=== PATIENT | female | born 1955 | race Caucasian/White ===

== ENCOUNTER 2019-04-22 06:23 | Inpatient (IN) ==
--- NOTE | 2019-03-31 08:52 | Anesthesiology Consultation ---
Date of Service March 31, 2019 Assessment & Plan (1) Encounter for pre-operative examination: Chart Review Chart Review: Acceptable Risk for Surgery and Patient seen in Pre Admission Testing Teaching & Discussion Instructed NPO after midnight before surgery, except medications with 15 cc of water. Medication instructions provided according to the PAT guidelines. History Surgery Operation Date: 04/22/19 07:15 Proposed Procedures p Left Total Knee Arthroplasty - Russ Jimenes DO Height/Weight Height: 5 ft 2.5 in Weight: 77.1 kg Allergies Allergy/AdvReac Type Severity Reaction Status Date / Time No Known Allergies Allergy Unverified 03/31/19 08:49 Medications Home Medications Medication Instructions Recorded Confirmed Last Taken Anamu 400 mg PO QAM 09/18/18 03/28/19 09/29/18 aspirin [Aspirin Low Dose] 81 mg PO QAM 09/18/18 03/28/19 09/29/18 atorvastatin 20 mg PO QAM 09/18/18 03/28/19 10/08/18 08:00 desvenlafaxine 50 mg PO QAM 09/18/18 03/28/19 10/08/18 08:00 Past Medical History Medical History (Updated 03/31/19 @ 16:11 by Raul Wong) Anxiety Depression GERD (gastroesophageal reflux disease) History of blood transfusion possible; post-op HX: breast cancer left mastectomy/XRT; LUE limb restriction -2002 Hyperlipidemia Kidney stone on left side and right side Osteoarthritis Exercise / Class Metabolic Activity II 4-5 Yardwork/Stairs/Walk up hill Past Family History Family History Other FHx: breast cancer Past Surgical History Surgical History History of cholecystectomy History of colonoscopy History of cystoscopy WITH STENT X 4-5 History of meniscectomy of left knee History of partial hysterectomy History of rotator cuff surgery RIGHT History of tonsillectomy Hx of left mastectomy Past Anesthesia History No Hx of Anesthesia Complications and No Family Hx of Anesthesia Complications History of PONV No Hx of PONV and Hx of Motion Sickness Social History Smoking Status: Never smoker Do You Dip or Chew Tobacco: No Hx Alcohol Use: Yes Alcohol type: wine alcohol intake frequency: holidays/special occasions only Hx Substance Use: No Review of Systems Pt denies any recent chest pain, shortness of breath, cough, fever or URI. +Rare palpitations Physical Exam Vital Signs BP: 122/76 P: 73bpm SPO2: 97% RA T: 98.0 F R: 16 ENMT Mouth: + dentures (upper partial) and + chipped teeth (to be pulled prior to surgery, advised to maker surgeon aware); no loose teeth Thyromental Distance: > or= 3.5 Finger Breadths (3.5) Mallampati Class: I Neck normal visual inspection; neck extension not limited Respiratory normal respiratory effort Auscultation: lungs clear to auscultation bilaterally Cardiovascular Rate/Rhythm: regular rate and regular rhythm Heart Sounds: no murmur Extremities: no edema Testing Laboratory Results 03/31/19 09:05 03/31/19 09:05 PT 10.0 Seconds (9.0-12.0) 03/31/19 09:05 INR 1.0 (0.9-1.1) 03/31/19 09:05 APTT 23.0 Seconds (21.0-31.0) 03/31/19 09:05 Hemoglobin A1c 5.7 % (4.5-5.6) H 03/31/19 09:05 Urine Color Yellow 03/31/19 09:05 Urine Appearance Clear (Clear) 03/31/19 09:05 Urine pH 6.5 (4.5-7.5) 03/31/19 09:05 Ur Specific [place] 1.008 (1.000-1.030) 03/31/19 09:05 Urine Protein Negative (Negative) 03/31/19 09:05 Urine Glucose (UA) Negative (Negative) 03/31/19 09:05 Urine Ketones Negative (Negative) 03/31/19 09:05 Urine Nitrite Negative (Negative) 03/31/19 09:05 Ur Leukocyte Esterase Negative (Negative) 03/31/19 09:05 Blood Type A Positive 03/31/19 09:05 Antibody Screen NEGATIVE 03/31/19 09:05 Electrocardiogram Date: 08/16/18 Findings: + NSR @ (67bpm with 1st degree AV block) Chest X-Ray Date: 08/16/18 Findings: + NAD
--- NOTE | 2019-03-31 08:58 | PAT Medication Instructions ---
Medication Instructions Date of Service March 31, 2019 Home Medications Anamu 400 mg PO QAM aspirin [Aspirin Low Dose] 81 mg PO QAM atorvastatin 20 mg PO QAM desvenlafaxine 50 mg PO QAM STOP taking 2 weeks before surgery If surgery is within 2 weeks, stop taking as soon as possible. Anamu 400 mg PO QAM Take morning of surgery With a small sip of water, OTHERWISE NOTHING TO EAT OR DRINK AFTER MIDNIGHT: aspirin [Aspirin Low Dose] 81 mg PO QAM atorvastatin 20 mg PO QAM desvenlafaxine 50 mg PO QAM Other Notes If you have any questions please call us at [phone] or [phone] or [phone] or [phone]
[2019-03-31 10:34] LABS: Basophils # (auto) 0.03 K/uL (0-0.2); Basophils % (auto) 0.5 %; Eosinophils # (auto) 0.21 K/uL (0-0.5); Eosinophils % (auto) 3.7 %; Hematocrit (blood only) 42.6 % (37-47); Hemoglobin 14.9 g/dL (12.0-16.0); Immature Granulocytes # (auto) 0.02 K/uL (0.00-0.02); Immature Granulocytes % (auto) 0.3 %; Lymphocytes % (auto) 38.4 %; Mean Corpuscular Hemoglobin 31.5 pg (25-34); Mean Corpuscular Volume 90.1 fL (80-100); Mean Platelet Volume 10.4 fL (7.4-10.4); Monocytes % (auto) 12.2 %; Neutrophils # (auto) 2.57 K/uL (1.4-6.5); Neutrophils % (auto) 44.9 %; Platelet Count 253 K/uL (130-400); RDW Coefficient of Variation 12.8 % (11.5-14.5); RDW Standard Deviation 41.8 fL (36.4-46.3); Red Blood Count 4.73 M/uL (4.2-5.4); White Blood Count 5.73 K/uL (4.8-10.8)
[2019-03-31 10:39] LABS: Appearance Urine Clear (Clear); Bilirubin Urine Negative (Negative); Blood Urine Negative (Negative); Color Urine Yellow; Glucose Urine UA Negative (Negative); Ketones Urine Negative (Negative); Leukocyte Esterase Urine Negative (Negative); Nitrite Urine Negative (Negative); Protein Urine Negative (Negative); Specific Gravity Urine 1.008 (1.000-1.030); Urobilinogen Urine Negative (Negative); pH Urine 6.5 (4.5-7.5)
[2019-03-31 10:44] LABS: Albumin Level 4.1 gm/dl (3.4-5.0); BUN Creatinine Ratio 14.9 (10-20); Calcium 9.4 mg/dl (8.5-10.1); Creatinine Clr Calc Pharmacy 74.7 ml/min; Est GFR (African American) 100.2; Est GFR (Non-African American) 86.4; Potassium 3.9 mmol/L (3.5-5.1)
[2019-03-31 10:47] LABS: Partial Thromboplastin Ratio 0.8
[2019-03-31 11:04] LABS: Estimated Average Glucose 117 mg/dl; Hemoglobin A1C 5.7 % (4.5-5.6)
--- NOTE | 2019-03-31 13:58 | History & Physical Report ---
Date of Service March 31, 2019 date of surgery: 04-22-19 Assessment & Plan (1) Arthritis of knee, left: Risks and benefits of procedure discussed in detail today, patient would like to proceed with a Left total knee replacement at [facility] as scheduled. will obtain medical clearance from Dr Smith prior to surgery as well as obtain PATs at [facility]. Will place on ASA 81mg po bid x 1 month post op, f/u 2 weeks post op for routine post-operative care and x-ray, sooner if having any problems. will make arrangements for HHPT at the time of discharge. At this point in time, has failed conservative measures and would like to proceed with surgical intervention. History of Present Illness Chief Complaint: left knee pain Primary Care Provider: NO PCP Ms Carlson is a 63 year old female who complains of left knee pain, presents for pre-op evaluation prior to a left total knee replacement at [facility]. she complains of pain and decreased ROM. She states that the symptoms have been chronic non- traumatic. The symptoms occur intermittently. Currently the patient states that the symptoms are moderate and is described as throbbing and aching. The symptoms occur with activity, walking and stairs. She rates her best pain as 2/10. She rates her worst pain as 10/10. She rates her current pain as 4/10. The symptoms are aggravated by daily activities, ascending stairs, descending stairs, kneeling and movement. she did have previous scope on 12/04/2013. she has also had previous viscosupplementation without relief. Allergies Allergy/AdvReac Type Severity Reaction Status Date / Time No Known Allergies Allergy Unverified 03/31/19 08:49 Home Medications Home Medications Medication Instructions Recorded Confirmed Type Anamu 400 mg PO QAM 09/18/18 03/28/19 History aspirin [Aspirin Low Dose] 81 mg PO QAM 09/18/18 03/28/19 History atorvastatin 20 mg PO QAM 09/18/18 03/28/19 History desvenlafaxine 50 mg PO QAM 09/18/18 03/28/19 History Past Med/Surg History Medical History Anxiety Cardiac murmur HX-WAS HEARD ONCE Depression GERD (gastroesophageal reflux disease) History of blood transfusion possible; post-op HX: breast cancer left mastectomy/XRT; LUE limb restriction -2003 Hyperlipidemia Kidney stone on left side and right side Osteoarthritis Surgical History History of cholecystectomy History of colonoscopy History of cystoscopy WITH STENT X 4-5 History of meniscectomy of left knee History of partial hysterectomy History of rotator cuff surgery RIGHT History of tonsillectomy Hx of left mastectomy Family History Other FHx: breast cancer Social History Preferred Language: Luxembourger Communication Ability: Effective Oriental Rug 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 Required: No Beliefs That Will Affect Care: None marital status: / Current Living Situation: Alone current occupational status: retired Other Information That Helps Us Care for You: No Feels Safe at Home: Yes Safety Concerns: Feels Safe At This Time Smoking Status: Never smoker Do You Dip or Chew Tobacco: No ; Second Hand Exposure: Yes (SPOUSE SMOKED-) ; Hx Alcohol Use: Yes Alcohol type: wine Hx Substance Use: No Review of Systems Review of Systems: All systems reviewed & are unremarkable except as noted in HPI & below Constitutional: no fever, no chills and no sweats Respiratory: no cough and no dyspnea Cardiovascular: no chest pain, no dyspnea and no orthopnea Gastrointestinal: no abdominal pain, no nausea and no vomiting Musculoskeletal: as per Subjective / HPI Physical Exam Physical Exam: Ht: 5ft 2in Wt: 77.1kg BP: 112/62 Pulse: 80 Constitutional: WD/WN, vitals as above no acute distress Respiratory: normal respiratory effort, lungs clear to auscultation no respiratory distress, no labored breathing and does not use accessory muscles Cardiovascular: RRR, no murmur, no edema Gastrointestinal (Abdomen): normal bowel sounds, soft, nontender, no hepatosplenomegaly Musculoskeletal: Knee: + knee abnormal to inspection (left knee), + deformity (varus alignment), + effusion (+1 effusion), + surgical incision (well healed portals), + limited ROM of knee (ROM 0/3/110), + knee ROM with crepitation, + joint line tenderness (medial joint line) and + Juan Antonio's sign positive; no skin erythema, no ecchymosis, no valgus laxity, no varus laxity, anterior drawer test negative, Radha's sign negative and pivot shift test negative Results & Data Laboratory Results Laboratory Results WBC 5.73 K/uL (4.8-10.8) 03/31/19 09:05 RBC 4.73 M/uL (4.2-5.4) 03/31/19 09:05 Hgb 14.9 g/dL (12.0-16.0) 03/31/19 09:05 Hct 42.6 % (37-47) 03/31/19 09:05 MCV 90.1 fL (80-100) 03/31/19 09:05 MCH 31.5 pg (25-34) 03/31/19 09:05 MCHC 35.0 g/dL (32-36) 03/31/19 09:05 RDW Std Deviation 41.8 fL (36.4-46.3) 03/31/19 09:05 RDW Coeff of Skylar 12.8 % (11.5-14.5) 03/31/19 09:05 Plt Count 253 K/uL (130-400) 03/31/19 09:05 MPV 10.4 fL (7.4-10.4) 03/31/19 09:05 Immature Gran % (Auto) 0.3 % 03/31/19 09:05 Neut % (Auto) 44.9 % 03/31/19 09:05 Lymph % (Auto) 38.4 % 03/31/19 09:05 [place] % (Auto) 12.2 % 03/31/19 09:05 Eos % (Auto) 3.7 % 03/31/19 09:05 Baso % (Auto) 0.5 % 03/31/19 09:05 Immature Gran # (Auto) 0.02 K/uL (0.00-0.02) 03/31/19 09:05 Neut # (Auto) 2.57 K/uL (1.4-6.5) 03/31/19 09:05 Lymph # (Auto) 2.20 K/uL (1.2-3.4) 03/31/19 09:05 [place] # (Auto) 0.70 K/uL (0.11-0.59) H 03/31/19 09:05 Eos # (Auto) 0.21 K/uL (0-0.5) 03/31/19 09:05 Baso # (Auto) 0.03 K/uL (0-0.2) 03/31/19 09:05 PT 10.0 Seconds (9.0-12.0) 03/31/19 09:05 INR 1.0 (0.9-1.1) 03/31/19 09:05 APTT 23.0 Seconds (21.0-31.0) 03/31/19 09:05 PTT Ratio 0.8 03/31/19 09:05 Sodium 139 mmol/L (136-145) 03/31/19 09:05 Potassium 3.9 mmol/L (3.5-5.1) 03/31/19 09:05 Chloride 106 mmol/L (98-107) 03/31/19 09:05 Carbon Dioxide 28 mmol/L (21-32) 03/31/19 09:05 Anion Gap 5.0 (3-11) 03/31/19 09:05 BUN 11 mg/dl (7-18) 03/31/19 09:05 Creatinine 0.73 mg/dl (0.6-1.2) 03/31/19 09:05 Est Cr Clr Drug Dosing 74.7 ml/min 03/31/19 09:05 Est GFR ( Amer) 100.2 03/31/19 09:05 Est GFR (Non-Af Amer) 86.4 03/31/19 09:05 BUN/Creatinine Ratio 14.9 (10-20) 03/31/19 09:05 Glucose 69 mg/dl (70-99) L 03/31/19 09:05 Estimat Average Glucose 117 mg/dl 03/31/19 09:05 Hemoglobin A1c 5.7 % (4.5-5.6) H 03/31/19 09:05 Calcium 9.4 mg/dl (8.5-10.1) 03/31/19 09:05 Albumin 4.1 gm/dl (3.4-5.0) 03/31/19 09:05 Urine Color Yellow 03/31/19 09:05 Urine Appearance Clear (Clear) 03/31/19 09:05 Urine pH 6.5 (4.5-7.5) 03/31/19 09:05 Ur Specific [place] 1.008 (1.000-1.030) 03/31/19 09:05 Urine Protein Negative (Negative) 03/31/19 09:05 Urine Glucose (UA) Negative (Negative) 03/31/19 09:05 Urine Ketones Negative (Negative) 03/31/19 09:05 Urine Blood Negative (Negative) 03/31/19 09:05 Urine Nitrite Negative (Negative) 03/31/19 09:05 Urine Bilirubin Negative (Negative) 03/31/19 09:05 Urine Urobilinogen Negative (Negative) 03/31/19 09:05 Ur Leukocyte Esterase Negative (Negative) 03/31/19 09:05 Blood Type A Positive 03/31/19 09:05 Antibody Screen NEGATIVE 03/31/19 09:05 Diagnostic Findings Left Knee X-ray 03-24-19 confirms advanced degenerative changes to the left knee, greatest medial compartments and patellofemoral joint, showing joint space narrowing, osteophyte formation and subchondral sclerosis. no acute bony pathology noted. overall varus alignment.
[~2019-04-22 06:23] MED LIST: ACETAMINOPHEN 500 MG TAB PO SCH; CEFAZOLIN 1000MG 1,000 MG/7.5 ML SYR IV SCH; CeleBREX 200 MG CAP PO SCH; FAMOTIDINE 20 MG TAB PO SCH; GABAPENTIN 300 MG CAP PO SCH; LR 500ML BOLUS, THEN 15ML/HR IV SCH; METOCLOPRAMIDE HCL 10 MG TABLET PO SCH; OXYCODONE HCL 10 MG TABCR (OXYCONTIN) PO SCH; ROPIVACAINE 0.5% HCL/PF 150 MG, BUPIVACAINE 0.5% MPF 30 ML, EPINEPHrine 30MG/30ML (OR U... INFIL SCH; TRANEXAMIC ACID 1,000 MG **IV Intra-op IV SCH; TRANEXAMIC ACID 1,000 MG **IV Pre-op IV SCH; dexAMETHasone 4 MG TAB PO SCH
[2019-04-22] MEDS ORDERED: BUPIVACAINE/EPINEPHRINE 0.25% 1:200,000 30 ML VIAL ONE (06:40)
[2019-04-22] MEDS ORDERED: BUPIVACAINE 0.5 % 5 MG/1 ML PF 10ML VIAL ONE (06:40)
[2019-04-22] MEDS ORDERED: DEXAMETHASONE SOD INJ 4 MG/ML VIAL ONE ×2 (06:40→09:30)
[2019-04-22] MEDS ORDERED: MIDAZOLAM HCL 1 MG/ML 2ML VIAL ONE ×2 (07:02)
[2019-04-22] MEDS ORDERED: fentaNYL citrate 100 MCG/2 ML VIAL ONE (07:02)
--- NOTE | 2019-04-22 07:33 | History & Physical Bridge Note ---
Date of Service April 22, 2019 History & Physical Bridge Note I have examined the patient, reviewed the History & Physical and in the interval since the performance of the History & Physical I have noted the following changes of clinical significance: no changes noted
[2019-04-22] MEDS ORDERED: BACITRACIN INJ 50,000 UNIT VIAL ONE (08:08)
[2019-04-22] MEDS ORDERED: ORTHO JOINT ANESTHETIC ONE (08:08)
[2019-04-22] MEDS ORDERED: ONDANSETRON INJ 2 MG/ML 2 ML VIAL IV PRN ×2 (08:57→12:06)
[2019-04-22] MEDS ORDERED: ePHEDrine sulfate 50 MG/ML AMP IV PRN (08:57)
[2019-04-22] MEDS ORDERED: ATROPINE SULFATE 0.1 MG/ML 10ML SYR IV PRN (08:57)
[2019-04-22] MEDS ORDERED: fentaNYL citrate 100 MCG/2 ML VIAL IV PRN (08:57)
[2019-04-22] MEDS ORDERED: PROPOFOL IV EMULSION 10 MG/ML 20 ML VIAL IV ONE (09:30)
[2019-04-22] MEDS ORDERED: LIDOCAINE HCL 2% 2 ML VIAL/AMP(20MG/ML) INFIL ONE (09:30)
[2019-04-22] MEDS ORDERED: ONDANSETRON INJ 2 MG/ML 2 ML VIAL ONE (09:30)
--- NOTE | 2019-04-22 10:01 | Operative Report ---
Post Operative Report Pre & Post Diagnosis Operation Date: 04/22/19 08:35 Pre-Op Diagnosis: Osteoarthritis, Left Knee Post-Op Diagnosis: Osteoarthritis, Left Knee I identified the patient and participated in the time-out.: Yes Procedure Operation Date: 04/22/19 08:35 Actual Procedures p Left Total Knee Arthroplasty(Left) utilizing [employer] jourlawnside 2 patient matched total knee arthroplasty size 4 femur 3 tibia 12 polyethylene 29 oval patella- Russ Jimenes DO Surgeon Russ Jimenes DO [employer] [place] Estimated Blood Loss 5 Findings Consistent with Post-Op Diagnosis Patient resents severe end-stage DJD left knee with ongoing complaints of pain with eburnated bone moderate large marginal osteophyte subchondral sclerosis subchondral cystic changes moderate to large effusion no response to conservative management Specimens Bone and cartilage Drains Bone and cartilage Complications none Disposition Accompanied Patient To Recovery: No Disposition: Recovery Room Indications Patient presents ongoing planes of pain trouble to the left knee no response to conservative management she has varus alignment subchondral sclerosis cystic c hanges marginal osteophytes is failed attempted Visco supplementation corticosteroid injections relative rest activity modification bracing she presents for left total knee arthroplasty Description of Procedure After proper prepping and draping of the left lower extremity anterior midline incision was made over the region of the extensor extensor mechanism after meticulous hemostasis was obtained and maintained in subcutaneous tissues a medial parapatellar incision was made The patella was subluxed lateralward the medial lateral gutter were cleaned from any hypertrophic synovitis and scar tissue of the distal femoral block was placed and the distal femoral osteotomy cut was made subsequently the chamfers anterior and posterior osteotomy cuts were made utilizing the 4-in-1 block the tibia was subsequently subluxed anteriorward medial and ateral meniscal remnants were excised in their entirety remnants of the anterior and posterior cruciate ligaments were excised in their entirety excellent exposure of the proximal tibia was obtained the tibial osteotomy guide was placed on the proximal tibial osteotomy cut was made once again the knee was irrigated with copious amounts of sterile saline solution the patella was subsequently everted lateralward thickened scar tissue around the patella was removed the patella was subsequently cut utilizing a freehand technique and was drilled prepared for final preparation and placement of patella socially flexion-extension gaps were checked and the equal and symmetric trials were placed to the appropriate femoral and tibial trials with poly-spacer being placed for equal flexion and extension gaps and full range of motion including extension to 0 and flexion to 140 the trial components after having been taken to recovery range of motion was subsequently removed meticulous hemostasis was obtained and maintained subsequently a knee block injection of joint cocktail including ropivacaine 0.5% 150 mg. Bupivacaine 0.5% epinephrine 1-200,030 mL's toradol 30 mg dexamethasone 4 mg ketamine 10 mg clonidine 100 micrograms normal saline solution 30 mg was infiltrated into the soft tissues of the posterior knee medial lateral gutters and periosteal synovium special attention was paid to protect neurovascular structures at all times subsequently trial components having been removed the knee was irrigated with sterile saline solution. debris was removed the proximal tibia was subsequently prepared and was made ready for the placement of the tibial component tibial component was also cemented and tamped into position the femoral component was subsequently placed and cemented in the position the patellar component was subsequently cemented in position because hemostasis once again obtained and maintained wound having been thoroughly irrigated with debridement and debridement lavage was performed as well as a medial parapatellar incision closed with #1 Vicryl in interrupted fashion subcutaneous was closed with #2 Vicryl skin was closed with skin clips. PA-C was necessary for prepping and drapping as well as wound closure of deep fascia Sub cutaneous tissue and skin and was necessary for the case. A sterile compressive dressing was placed patient was taken to recovery in stable condition of report dictated by Jalil I attest to the content of the Intraoperative Record and any orders documented therein. Any exceptions are noted below. I attest to the content of the Intraoperative Record and any orders documented therein. Any exceptions are noted below.
--- NOTE | 2019-04-22 11:06 | XRay Report ---
XR knee LT 1 or 2V routine CLINICAL HISTORY: Surgical Post Op COMPARISON: None. DISCUSSION: Anatomic alignment posttotal left knee arthroplasty. Good contact between prosthetic and underlying bone. Expected postoperative soft tissue change IMPRESSION: Anatomic alignment post total left knee arthroplasty. ACT 112: Negative or not required by law. The above report was generated using voice recognition software. It may contain grammatical, syntax or spelling errors. Electronically signed by: Stuart Tee M.D. 04/22/2019 11:05 AM
--- NOTE | 2019-04-22 11:38 | Anesthesiology Progress Note ---
Date of Service April 22, 2019 Anesthesia Post Procedure Vital Signs Vital Signs: Temp Pulse Pulse Resp BP Pulse Ox 04/22/19 11:25 36.8 C 69 16 123/65 97 04/22/19 11:15 68 16 135/66 96 04/22/19 11:05 71 16 116/60 96 04/22/19 10:55 77 17 113/56 L 94 04/22/19 10:45 36.7 C 78 12 112/53 L 90 04/22/19 07:03 36.8 C 66 18 154/82 H 96 Pain Intensity Left Knee: Pain Intensity: 0 Transfer of Care Handoff Completed per policy Notes Mental Status: alert / awake / arousable Patient Amnestic to Procedure: Yes Nausea / Vomiting: adequately controlled Pain: adequately controlled Airway Patency, RR, SpO2: stable & adequate BP & HR: stable & adequate Hydration State: stable & adequate Neuraxial Anesthesia: was administered and sensory block is resolving Anesthetic Complications: no major complications apparent
[2019-04-22] MEDS ORDERED: HYDROmorphone INJ 1 MG/ML SYRINGE IV PRN (12:06)
[2019-04-22] MEDS ORDERED: METOCLOPRAMIDE HCL INJ 5 MG/ML 2 ML VIAL IV PRN (12:06)
[2019-04-22] MEDS ORDERED: NALOXONE HCL 0.4 MG/1 ML VIAL/CARP IV PRN (12:06)
[2019-04-22] MEDS ORDERED: MAGNESIUM HYDROXIDE SUSP 30 ML UDC PO PRN (12:06)
[2019-04-22] MEDS ORDERED: bisacodyL 10 MG SUPP PR PRN (12:06)
[2019-04-22] MEDS: KETOROLAC TROMETHAMINE 15 MG/ML VIAL IV SCH ×3 (12:37→23:43)
[2019-04-22] MEDS: SODIUM CHLORIDE 0.9% 1000ML 1,000 ML IV SCH ×2 (12:37→21:41)
[2019-04-22] MEDS: ACETAMINOPHEN 500 MG TAB PO SCH ×2 (13:16→21:01)
[2019-04-22] MEDS: CEFAZOLIN 2000MG 2,000 MG/15 ML SYR IV SCH (16:25)
[2019-04-22] MEDS: OXYCODONE HCL IR 5 MG TAB (IMMEDIATE RELEASE) PO PRN (19:50)
[2019-04-22] MEDS: DOCUSATE SODIUM 100 MG CAP PO SCH (20:32)
[2019-04-22] MEDS: CALCIUM 600MG + VIT D 400 IU TAB PO SCH (20:32)
[2019-04-22] MEDS: ASPIRIN 81 MG ECTAB PO SCH (20:32)
[2019-04-22] MEDS: SENNA 8.6 MG TAB PO SCH (20:32)
[2019-04-23] MEDS: CEFAZOLIN 2000MG 2,000 MG/15 ML SYR IV SCH (01:33)
[2019-04-23 05:33] LABS: Hematocrit (blood only) 33.4 % (37-47); Hemoglobin 11.4 g/dL (12.0-16.0); Mean Corpuscular Hemoglobin 30.6 pg (25-34); Mean Corpuscular Hgb Conc 34.1 g/dL (32-36); Mean Corpuscular Volume 89.5 fL (80-100); Mean Platelet Volume 10.3 fL (7.4-10.4); Platelet Count 197 K/uL (130-400); RDW Coefficient of Variation 12.6 % (11.5-14.5); Red Blood Count 3.73 M/uL (4.2-5.4); White Blood Count 15.93 K/uL (4.8-10.8)
[2019-04-23] MEDS: ACETAMINOPHEN 500 MG TAB PO SCH ×3 (05:46→21:23)
[2019-04-23] MEDS: KETOROLAC TROMETHAMINE 15 MG/ML VIAL IV SCH (05:50)
[2019-04-23 06:07] LABS: BUN Creatinine Ratio 18.5 (10-20); Calcium 8.3 mg/dl (8.5-10.1); Creatinine Clr Calc Pharmacy 68.8 ml/min; Est GFR (Non-African American) 78.6
--- NOTE | 2019-04-23 07:32 | Anesthesiology Progress Note ---
Date of Service April 23, 2019 Anesthesia Post Procedure Vital Signs Vital Signs: Temp Pulse Pulse Resp BP Pulse Ox 04/23/19 03:22 36.9 C 63 15 105/66 96 04/22/19 23:14 37.0 C 67 15 97/61 L 95 04/22/19 19:44 37 C 68 18 103/64 94 04/22/19 15:30 36.6 C 62 16 99/61 L 96 04/22/19 14:36 66 16 112/63 96 04/22/19 13:50 67 16 106/64 92 04/22/19 12:56 95 04/22/19 12:47 79 16 135/77 94 04/22/19 12:18 36.5 C 64 16 116/73 96 04/22/19 12:05 36.4 C L 70 18 128/79 96 04/22/19 11:35 70 16 133/71 97 04/22/19 11:25 36.8 C 69 16 123/65 97 04/22/19 11:15 68 16 135/66 96 04/22/19 11:05 71 16 116/60 96 04/22/19 10:55 77 17 113/56 L 94 04/22/19 10:45 36.7 C 78 12 112/53 L 90 Pain Intensity Left Knee: Pain Intensity: 0 Notes Mental Status: alert / awake / arousable and participated in evaluation Nausea / Vomiting: adequately controlled Pain: adequately controlled Airway Patency, RR, SpO2: stable & adequate BP & HR: stable & adequate Hydration State: stable & adequate Neuraxial Anesthesia: sensory block resolved Anesthetic Complications: no major complications apparent
--- NOTE | 2019-04-23 08:17 | Orthopedic Progress Note ---
Date of Service April 23, 2019 Assessment & Plan (1) Arthritis of knee, left: Postop day 1 status post left total knee arthroplasty. Leukocytosis-most likely due to surgical stress versus preoperative steroids. Patient currently asymptomatic. PT/OT protocols. Weightbearing as tolerated. DVT prophylaxis with aspirin p.o. twice daily, PREET Maria. New current pain regimen. DC planning-Home health services upon discharge. Admission and Anticipated Discharge Date Admission Date: April 22, 2019 Subjective Postop day 1 Patient is currently sitting up in bed awake and alert. She has a mild complaint of pain in the operative knee superior to the patella. She has no other complaints at this time. Denies shortness of breath, chest pain, lightheadedness. Physical Exam Physical Exam: Dressings are clean, dry, and intact. Calves are soft and nontender. Neurovascular is intact. Toes are mobile and she has good dorsiflexion and plantarflexion of the left ankle. Hemovac drainage is 75 mL's from the previous shift. Results & Data ([facility]) Vital Signs (Past 12 Hours) Vital Signs Temp Pulse Pulse Resp BP Pulse Ox 04/23/19 07:30 36.5 C 55 L 16 110/70 04/23/19 03:22 36.9 C 63 15 105/66 96 04/22/19 23:14 37.0 C 67 15 97/61 L 95 Laboratory Results Laboratory Results WBC 15.93 K/uL (4.8-10.8) H 04/23/19 04:55 RBC 3.73 M/uL (4.2-5.4) L 04/23/19 04:55 Hgb 11.4 g/dL (12.0-16.0) L 04/23/19 04:55 Hct 33.4 % (37-47) L 04/23/19 04:55 MCV 89.5 fL (80-100) 04/23/19 04:55 MCH 30.6 pg (25-34) 04/23/19 04:55 MCHC 34.1 g/dL (32-36) 04/23/19 04:55 RDW Std Deviation 41.0 fL (36.4-46.3) 04/23/19 04:55 RDW Coeff of Skylar 12.6 % (11.5-14.5) 04/23/19 04:55 Plt Count 197 K/uL (130-400) 04/23/19 04:55 MPV 10.3 fL (7.4-10.4) 04/23/19 04:55 Immature Gran % (Auto) 0.3 % 03/31/19 09:05 Neut % (Auto) 44.9 % 03/31/19 09:05 Lymph % (Auto) 38.4 % 03/31/19 09:05 [place] % (Auto) 12.2 % 03/31/19 09:05 Eos % (Auto) 3.7 % 03/31/19 09:05 Baso % (Auto) 0.5 % 03/31/19 09:05 Immature Gran # (Auto) 0.02 K/uL (0.00-0.02) 03/31/19 09:05 Neut # (Auto) 2.57 K/uL (1.4-6.5) 03/31/19 09:05 Lymph # (Auto) 2.20 K/uL (1.2-3.4) 03/31/19 09:05 [place] # (Auto) 0.70 K/uL (0.11-0.59) H 03/31/19 09:05 Eos # (Auto) 0.21 K/uL (0-0.5) 03/31/19 09:05 Baso # (Auto) 0.03 K/uL (0-0.2) 03/31/19 09:05 PT 10.0 Seconds (9.0-12.0) 03/31/19 09:05 INR 1.0 (0.9-1.1) 03/31/19 09:05 APTT 23.0 Seconds (21.0-31.0) 03/31/19 09:05 PTT Ratio 0.8 03/31/19 09:05 Sodium 140 mmol/L (136-145) 04/23/19 04:55 Potassium 4.0 mmol/L (3.5-5.1) 04/23/19 04:55 Chloride 109 mmol/L (98-107) H 04/23/19 04:55 Carbon Dioxide 24 mmol/L (21-32) 04/23/19 04:55 Anion Gap 7.0 (3-11) 04/23/19 04:55 BUN 15 mg/dl (7-18) 04/23/19 04:55 Creatinine 0.79 mg/dl (0.6-1.2) 04/23/19 04:55 Est Cr Clr Drug Dosing 68.8 ml/min 04/23/19 04:55 Est GFR ( Amer) 91.0 04/23/19 04:55 Est GFR (Non-Af Amer) 78.6 04/23/19 04:55 BUN/Creatinine Ratio 18.5 (10-20) 04/23/19 04:55 Glucose 135 mg/dl (70-99) H 04/23/19 04:55 Estimat Average Glucose 117 mg/dl 03/31/19 09:05 Hemoglobin A1c 5.7 % (4.5-5.6) H 03/31/19 09:05 Calcium 8.3 mg/dl (8.5-10.1) L 04/23/19 04:55 Albumin 4.1 gm/dl (3.4-5.0) 03/31/19 09:05 Urine Color Yellow 03/31/19 09:05 Urine Appearance Clear (Clear) 03/31/19 09:05 Urine pH 6.5 (4.5-7.5) 03/31/19 09:05 Ur Specific [place] 1.008 (1.000-1.030) 03/31/19 09:05 Urine Protein Negative (Negative) 03/31/19 09:05 Urine Glucose (UA) Negative (Negative) 03/31/19 09:05 Urine Ketones Negative (Negative) 03/31/19 09:05 Urine Blood Negative (Negative) 03/31/19 09:05 Urine Nitrite Negative (Negative) 03/31/19 09:05 Urine Bilirubin Negative (Negative) 03/31/19 09:05 Urine Urobilinogen Negative (Negative) 03/31/19 09:05 Ur Leukocyte Esterase Negative (Negative) 03/31/19 09:05 Blood Type A Positive 03/31/19 09:05 Antibody Screen NEGATIVE 03/31/19 09:05
[2019-04-23] MEDS: CALCIUM 600MG + VIT D 400 IU TAB PO SCH ×2 (08:37→20:35)
[2019-04-23] MEDS: ASPIRIN 81 MG ECTAB PO SCH ×2 (08:38→20:35)
[2019-04-23] MEDS: DOCUSATE SODIUM 100 MG CAP PO SCH ×2 (08:38→20:35)
[2019-04-23] MEDS: ATORVASTATIN 20 MG TAB PO SCH (08:38)
[2019-04-23] MEDS: MULTIVITAMIN TAB PO SCH (08:39)
[2019-04-23] MEDS: DESVENLAFAXINE SUCCINATE 50 MG PO SCH (08:39)
[2019-04-23] MEDS: OXYCODONE HCL IR 5 MG TAB (IMMEDIATE RELEASE) PO PRN ×4 (08:41→22:10)
[2019-04-23] MEDS: CeleBREX 200 MG CAP PO SCH ×2 (11:20→20:35)
[2019-04-23] MEDS: SENNA 8.6 MG TAB PO SCH (20:34)
[2019-04-24] MEDS: ACETAMINOPHEN 500 MG TAB PO SCH (05:26)
--- NOTE | 2019-04-24 07:26 | Orthopedic Progress Note ---
Date of Service April 24, 2019 Assessment & Plan (1) Arthritis of knee, left: Postop day 2 status post left total knee arthroplasty. PT protocols. Weightbearing as tolerated. DVT prophylaxis with aspirin p.o. twice daily, Crow, PREET vincent. [place] planning-Home health services upon discharge. Admission and Anticipated Discharge Date Admission Date: April 22, 2019 Subjective Postop day 2 Patient is currently sitting up in bed awake and alert. Denies shortness of breath, chest pain, lightheadedness. pain currently controlled. Physical Exam Physical Exam: Vital Signs Temp 36.8 C 04/24/19 07:24 Pulse 64 04/24/19 07:24 Resp 16 04/24/19 07:24 BP 125/63 04/24/19 07:24 Pulse Ox 97 04/24/19 07:24 Intake & Output 04/23/19 04/24/19 04/24/19 18:59 06:59 18:59 Intake Total 650 / 1320 670 / 1320 Output Total 175 / 275 100 / 275 Balance 475 / 1045 570 / 1045 Intake: Oral 650 / 1320 670 / 1320 Output: Drain Output 175 / 275 100 / 275 Left Knee Hemo vac 175 / 275 100 / 275 # Bowel Movement s 0 / 0 Other: # Unmeasured Voi ds 1 Constitutional: WD/WN, vitals as above no acute distress Musculoskeletal: left knee: NVDI, calf SNT, negative sonia sign. DP palpable, able to wiggle toes/ankle movement without difficulty. Incision clean dry and intact. expected post-operative bruising noted. Results & Data ([facility]) Vital Signs (Past 12 Hours) Vital Signs Temp Pulse Resp BP Pulse Ox 04/23/19 23:36 36.6 C 60 18 114/68 96
--- NOTE | 2019-04-24 07:32 | Discharge Summary ---
Date of Service April 24, 2019 Admission HPI Per Admitting Provider Ms Carlson is a 63 year old female who complains of left knee pain, presents for pre-op evaluation prior to a left total knee replacement at [facility]. she complains of pain and decreased ROM. She states that the symptoms have been chronic non- traumatic. The symptoms occur intermittently. Currently the patient states that the symptoms are moderate and is described as throbbing and aching. The symptoms occur with activity, walking and stairs. She rates her best pain as 2/10. She rates her worst pain as 10/10. She rates her current pain as 4/10. The symptoms are aggravated by daily activities, ascending stairs, descending stairs, kneeling and movement. she did have previous scope on 12/04/2013. she has also had previous viscosupplementation without relief. Principal Diagnosis left knee osteoarthritis Discharge Exam Vital Signs Temp 36.8 C 04/24/19 07:24 Pulse 64 04/24/19 07:24 Resp 16 04/24/19 07:24 BP 125/63 04/24/19 07:24 Pulse Ox 97 04/24/19 07:24 Intake & Output 04/23/19 04/24/19 04/24/19 18:59 06:59 18:59 Intake Total 650 / 1320 670 / 1320 Output Total 175 / 275 100 / 275 Balance 475 / 1045 570 / 1045 Intake: Oral 650 / 1320 670 / 1320 Output: Drain Output 175 / 275 100 / 275 Left Knee Hemovac 175 / 275 100 / 275 # Bowel Movements 0 / 0 Other: # Unmeasured Voids 1 Constitutional WD/WN, vitals as above no acute distress Musculoskeletal left knee: NVDI, calf SNT, negative sonia sign. DP palpable, able to wiggle toes/ankle movement without difficulty. Incision clean dry and intact. expected post-operative bruising noted. Discharge Data Allergies Allergy/AdvReac Type Severity Reaction Status Date / Time No Known Allergies Allergy Verified 04/22/19 06:59 Consultations 04/22/19 12:06 Consult Case Management - Discharge Planning Routine Procedures Performed Operation Date: 04/22/19 08:35 Actual Procedures p Left Total Knee Arthroplasty(Left) - Russ Jimenes DO Ordered Studies 04/22/19 05:00 US - OR guided needle placemen Routine Hospital Course (1) Arthritis of knee, left: Postop day 2 status post left total knee arthroplasty. PT protocols. Weightbearing as tolerated. DVT prophylaxis with aspirin p.o. twice daily, PREET Maria. [place] planning-Home health services upon discharge. Total Time Total Time Spent Total Time Spent (In Minutes): 20 Total Time Includes: Examination of the Patient, Discharge Planning and Medication Reconciliation Discharge Plan Discharge Items Patient Disposition: Home - Home Health Services Reason For Visit: Osteoarthritis, Left Knee Discharge Diagnosis: left total knee replacement Condition on Discharge: Good Activity: Per Instructions section Weightbearing: Full weightbearing Non-emergency contact: Surgeon Call non-emergency contact if: you have any medication questions, your temperature is above 101, your wound has increased redness, your wound has increased drainage and your wound pain has increased Follow-up/Referrals: Jose Ling MD [Primary Care Provider] - Diet: Regular Addtl Attending Provider Instructions: ACTIVITY RECOMMENDATIONS: SELF CARE INSTRUCTIONS AFTER TOTAL KNEE REPLACEMENT A. You may need to continue a physical therapy program after discharge from the hospital. There are several options available to you. Your doctor will assist you in selecting the best one for you. 1. An out-patient facility 2 to 3 times a week for therapy or home therapy. 2. Continue working on all exercises taught to you in the hospital. Your goals should be to increase bending of your knee to 90 degrees and beyond and to fully straighten your knee. B. You may progress at your own pace from walking with a walker or crutches to a cane; then to no assistive devices. C. Make walking a part of your daily routine. Be up as much as comfortable with rest periods throughout the day. Rest with leg elevation is very important. Use the ice wrap frequently for the first 3-4 weeks. D. There are no restrictions on activities. 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 E. Wear the long elastic stockings (PREET hose) 20 hours a day for 2 weeks after surgery. They can be removed several times a day for laundering and for a bath. F. You may shower, no tub baths until cleared by your doctor. SPECIAL CARE INSTRUCTIONS: VERY IMPORTANT TO READ AND REVIEW A. There are a few signs you need to watch for after you are home. Call [facility] if you notice any of the followin. Increased severe knee pain. Some pain is expected especially when you exercise. 2. Increased swelling in your leg or knee; pain or swelling of the calf muscle in either lower leg. 3. Any fluid drainage from the incision. 4. Shortness of breath or chest pain. B. Please call [facility] at if you have any concerns or questions about your operation or recovery. The doctor or his nurse will return your call promptly. C. You must take antibiotics before dental work, bladder, bowel or other surgery. Your doctor will provide you with a permanent care to carry describing this precaution. IMPORTANT: * REMEMBER TO TAKE ASPIRIN, 81 MG, TWICE DAILY FOR 4 WEEKS UNLESS OTHERWISE DIRECTED. THIS IS YOUR BLOOD THINNER. * HIGH RISK PATIENTS MAY BE PRESCRIBED A STRONGER BLOOD THINNER. THIS WILL BE PROVIDED AT DISCHARGE. * CALL IF INCREASED PAIN, REDNESS, DRAINAGE OR FEVER GREATER THAT 101. * WEAR PREET HOSE 20 HOURS PER DAY FOR 2 WEEKS. DERMABOND Prineo- This is a mesh tape dressing that is covered with glue. It should remain in place until the incision is properly healed, usually 10-14 days. This dressing is designed to naturally slough off. You may trim the excess mesh tape as it peels off. Incision may be briefly wet in a shower. Dry immediately by blotting with a clean, dry towel. Do not bath or swim until instructed by your doctor. Do not scratch, rub, or pick at the dressing. Do not apply any topical ointments or lotions until dressing is completely removed and/or instructed by your doctor. There may be a small piece of suture material at one end of your incision. Do not pull or trim this. If it is bothersome or catching on clothing, you may cover it with a band-aid. IF INCISION IS LEAKING THROUGH DRESSING, CALL THE OFFICE . FOLLOW UP VISIT: If appointment is not already scheduled: Please call [facility] to make a follow-up appointment for 2 weeks after your surgery at . Pending Studies at Discharge: No Stand-Alone Forms: My [employer], Smoking Cessation Medications and DC Order Prescriptions: New celecoxib [Celebrex] 200 mg Capsule 200 mg PO BID 30 Days Qty: 60 RF: 0 aspirin 81 mg Tablet,Delayed Release (Dr/Ec) 81 mg PO BID 30 Days Qty: 60 RF: 0 acetaminophen 500 mg Tablet 1,000 mg PO Q8 21 Days Qty: 126 RF: 0 oxycodone 5 mg Tablet 5 - 10 mg PO Q6H PRN (Reason: pain) Qty: 30 RF: 0 docusate sodium 100 mg Capsule 100 mg PO BID 10 Days Qty: 20 RF: 0 cefadroxil 500 mg capsule 500 mg PO BID 10 Days Qty: 20 RF: 0 Continued atorvastatin 20 mg Tablet 20 mg PO QAM RF: 0 Anamu 400 mg Capsule 400 mg PO QAM RF: 0 desvenlafaxine 50 mg Tablet Extended Release 24hr 50 mg PO QAM RF: 0 Calcium 600 + D(3) 600 mg calcium- 200 unit Capsule 2 cap PO BID RF: 0 Discontinued aspirin [Aspirin Low Dose] 81 mg Tablet,Delayed Release (Dr/Ec) 81 mg PO QAM RF: 0 Discharge Orders: Discharge Order (Routine); Ordered 04/24/19 Ordered By: Stuart Chapin Admission Data Admit Date/Time: 04/22/19 10:47 Attending Provider: Russ Jimenes Admit Provider: Russ Jimenes Primary Care Provider: Jose Ling
[2019-04-24] MEDS ORDERED: KETOROLAC TROMETHAMINE 15 MG/ML VIAL IV ONE (07:45)
[2019-04-24] MEDS: CeleBREX 200 MG CAP PO SCH (08:38)
[2019-04-24] MEDS: CALCIUM 600MG + VIT D 400 IU TAB PO SCH (08:40)
[2019-04-24] MEDS: ATORVASTATIN 20 MG TAB PO SCH (08:41)
[2019-04-24] MEDS: MULTIVITAMIN TAB PO SCH (08:41)
[2019-04-24] MEDS: DESVENLAFAXINE SUCCINATE 50 MG PO SCH (08:41)
[2019-04-24] MEDS: ASPIRIN 81 MG ECTAB PO SCH (08:41)
[2019-04-24] MEDS: DOCUSATE SODIUM 100 MG CAP PO SCH (08:41)
[2019-04-24] MEDS: OXYCODONE HCL IR 5 MG TAB (IMMEDIATE RELEASE) PO PRN (09:22)
== END 2019-04-24 13:27 | disposition home health service (06) | DRG 470 ==
LOC: ASU 06:23 → 3E 10:47